=== PATIENT | female | born 2000 | race African-American/Black ===

== ENCOUNTER 2025-01-17 21:30 | Emergency (ER) | payer MEDICARE, SELFPAY ==
[2025-01-17 21:56] LABS: BEDSIDEPREGUCG Negative (Negative)
[2025-01-17 22:05] LABS: Hematocrit 34.1 % (37.0-47.0); Hemoglobin 10.7 g/dL (12.0-15.0); Immature Granulocyte Percent A 0.2 % (0-0.5); Lymphocytes Absolute Auto 2.49 K/mm3 (0.9-3.2); Mean Corpuscular HGB Conc 31.4 g/dl (32-36); Mean Corpuscular Hemoglobin 27.9 pg (26-34); Mean Corpuscular Volume 89.0 fl (80-100); Nucleated Red Blood Cells Absolute Auto 0.000 K/mm3 (0.0-0.012); Nucleated Red Blood Cells Perc 0.0 % (0.0-0.2); Platelet Count Result 361 k/mm3 (150-375); Red Blood Count 3.83 M/mm3 (4.2-5.4); White Blood Count 6.5 K/mm3 (4.5-10.0)
[2025-01-17 22:15] LABS: Alanine Aminotransferase 17 U/L (6-35); Albumin Level 4.3 g/dL (3.5-5.1); Alkaline Phosphatase 75 U/L (38-126); Anion Gap 10 mmol/L (4-12); Aspartate Amino Transferase 27 U/L (14-36); Bilirubin,Total 0.3 mg/dL (0.2-1.3); Blood Urea Nitrogen 9 mg/dL (7-17); Calcium 9.5 mg/dL (8.4-10.2); Carbon Dioxide 21 mmol/L (22-30); Chloride 106 mmol/L (98-107); Estimated Glomerular Filt Rate > 60; Glucose 91 mg/dL (65-110); Potassium 3.6 mmol/L (3.4-5.0); Sodium 137 mmol/L (137-145); Total Protein 7.7 g/dL (6.3-8.2)
[2025-01-17 22:21] LABS: Add Urine Microscopic? YES; Appearance Urine Clear (Clear); Budding Yeast Urine Present /hpf; Glucose Urine UA Negative (Negative); Leukocyte Esterase Ur Negative LEU/UL (Negative); Need Manual Microscopic Reviewed; Nitrate Urine Negative (Negative); Non Pathogenic Casts 0-2; Specific Grav Ur 1.035 (1.001-1.035)
[2025-01-17 22:22] LABS: Cannabinoid Screen Urine Positive (Negative)
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
[2025-01-17 22:24] VITALS: BP 138/85; PULSE 84; RESP 20; TEMP 36.8; O2SAT 94
[2025-01-17 22:42] LABS: Influenza A QL RT-PCR Negative (Negative); Influenza B QL RT-PCR Negative (Negative); SARS-CoV-2 RNA PCR Negative (Negative)
[2025-01-17 22:45] LABS: Thyroid Stimulating Hormone Reflex 1.400 uIU/mL (0.465-4.68)
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
[2025-01-18] MEDS: ACETAMINOPHEN 500 MG TABLET 1000 MG PO (00:07)
--- NOTE | 2025-01-18 00:21 | PC.NURSE ---
CRISIS made aware pt is now medically cleared.
--- NOTE | 2025-01-18 03:00 | PC.NURSE ---
CRISIS at bedside
--- NOTE | 2025-01-18 04:11 | PC.NURSE ---
Per crisis safety plan made, pt contacted mother for ride home.
== END 2025-01-18 04:22 | disposition home or self-care (01) ==
PROVIDERS: Emergency Provider Student in an Organized Health Care Education/Training Program
DX: R45.851 Suicidal ideations (principal); D64.9 Anemia, unspecified; F12.90 Cannabis use, unspecified, uncomplicated; Z11.59 Encounter for screening for other viral diseases; F32.A Depression, unspecified
CPT/HCPCS: 36415; 80053; 80307; 81001; 81025; 82077; 84443; 85025; 87636; 99284; A9270